=== PATIENT | male | born 1955 | race Caucasian/White ===

== ENCOUNTER 2018-07-14 12:21 | Inpatient (IN) | payer MEDICARE ==
[~2018-07-14] VITALS: Ht 370.8 cm; Wt 103.4 kg
[2018-07-14] MEDS ORDERED: TRAMADOL 50MG TABLET PO ONE (16:15)
[2018-07-14] MEDS ORDERED: ACETAMINOPHEN WITH CODEINE 300/30MG TABLET PO ONE (16:15)
[2018-07-14] MEDS ORDERED: ONDANSETRON 4MG ODT PO ONE (16:15)
[2018-07-14] MEDS ORDERED: SODIUM CHLORIDE 0.9% 1,000 ML IV ONE (17:28)
[2018-07-14] MEDS ORDERED: ONDANSETRON HCL 4MG/2ML INJ IV ONE (18:00)
[2018-07-14] MEDS ORDERED: MORPHINE SULFATE 4 MG/ML CPJ (NOT FOR IM USE) IV ONE (18:00)
[2018-07-14] MEDS ORDERED: ETOMIDATE 2MG/ML 10ML VIAL IV ONE (18:00)
[2018-07-14 18:33] LABS: BASOPHILS % 0.5 % (0.0-2.0); EOSINOPHILS % 0.1 % (0.0-5.0); HEMATOCRIT. 44.5 % (42.0-52.0); HEMOGLOBIN. 14.8 g/dL (14.0-18.0); LYMPHOCYTES % 11.9 % (20.0-50.0); MEAN CORPUSCULAR HEMOGLOBIN 28.6 pg (28.0-32.0); MEAN CORPUSCULAR VOLUME 85.8 fL (80.0-94.0); MEAN PLATELET VOLUME 8.1 fl (7.4-10.4); MONOCYTES % 9.6 % (2.0-8.0); NEUTROPHILS % 77.9 % (40.0-76.0); PLATELET 200 x1000/uL (130-400); RED BLOOD CELL COUNT 5.19 mill/uL (4.7-6.1); RED CELL DISTRIBUTION WIDTH 13.2 % (11.6-14.6)
[2018-07-14 18:35] LABS: CHLORIDE 105 mEq/L (98-107)
[2018-07-14 18:37] LABS: PARTIAL THROMBOPLASTIN TIME 26.5 sec (23.4-31.0); PROTHROMBIN TIME 10.4 sec (9.6-11.0)
[2018-07-14 21:50] VITALS: BP 108/53
[2018-07-14] MEDS ORDERED: CLONIDINE 0.1MG TABLET PO PRN (22:30)
[2018-07-14] MEDS ORDERED: ONDANSETRON HCL 4MG/2ML INJ IV PRN (22:30)
[2018-07-14] MEDS ORDERED: TRAMADOL 50MG TABLET PO PRN (22:30)
[2018-07-14] MEDS ORDERED: ACETAMINOPHEN 325MG TABLET PO PRN (22:30)
[2018-07-14] MEDS ORDERED: MAGNESIUM/ALUMINUM HYDROXIDE/SIMETHICONE 30ML UDC PO PRN (22:30)
[2018-07-14] MEDS ORDERED: LORAZEPAM 2MG/ML CPJ IV PRN (22:30)
[2018-07-14] MEDS ORDERED: DIPHENHYDRAMINE 50MG/ML VIAL IV PRN (22:30)
[2018-07-14 23:00] VITALS: BP 136/74
[2018-07-14] MEDS: ENOXAPARIN 40MG/0.4ML SYR SUBCUT SCH (23:31)
[2018-07-15] VITALS: BP 139/76
[2018-07-15 04:00] VITALS: BP 106/66
[2018-07-15] MEDS: SODIUM CHLORIDE 0.9% INJ 3ML FLUSH IVF SCH ×3 (05:31→21:36)
[2018-07-15] MEDS: PHENYTOIN SODIUM EXTENDED 100MG CAPSULE PO SCH ×2 (05:31→14:14)
[2018-07-15] MEDS: THIORIDAZINE HCL 25MG TABLET PO SCH ×2 (05:36→14:00)
[2018-07-15 08:00] VITALS: BP 121/72
[2018-07-15 12:00] VITALS: BP 119/78
[2018-07-15 16:00] VITALS: BP 137/77
[2018-07-15 20:00] VITALS: BP 123/80
[2018-07-15] MEDS: RISPERIDONE 1MG TABLET PO SCH (21:34)
[2018-07-15] MEDS: ENOXAPARIN 40MG/0.4ML SYR SUBCUT SCH (21:35)
[2018-07-16] VITALS: BP 124/73
[2018-07-16 04:00] VITALS: BP 143/88
[2018-07-16] MEDS: SODIUM CHLORIDE 0.9% INJ 3ML FLUSH IVF SCH ×3 (05:58→23:23)
[2018-07-16 08:00] VITALS: BP 121/76
[2018-07-16] MEDS: RISPERIDONE 1MG TABLET PO SCH ×2 (09:22→20:49)
[2018-07-16 12:00] VITALS: BP 117/73
[2018-07-16 16:00] VITALS: BP 139/79
[2018-07-16 20:00] VITALS: BP 130/84
[2018-07-17] VITALS: BP 131/74
[2018-07-17 04:00] VITALS: BP 128/85
[2018-07-17] MEDS: SODIUM CHLORIDE 0.9% INJ 3ML FLUSH IVF SCH ×3 (05:20→21:11)
[2018-07-17] MEDS: RISPERIDONE 1MG TABLET PO SCH ×2 (08:09→21:11)
[2018-07-17 08:12] VITALS: BP 127/76
[2018-07-17] MEDS ORDERED: BACITRACIN 15GM TUBE TOP ONE (10:59)
[2018-07-17] MEDS ORDERED: VANCOMYCIN HCL 500 MG/VIAL ONE (10:59)
[2018-07-17 11:30] VITALS: BP 134/81
[2018-07-17] MEDS ORDERED: MIDAZOLAM HCL 2 MG/2 ML VIAL ONE (12:30)
[2018-07-17] MEDS ORDERED: FENTANYL CITRATE/PF 50MCG/ML 2ML VIAL ONE (12:30)
[2018-07-17] MEDS ORDERED: PROPOFOL 200MG/20ML VIAL IV ONE (12:30)
[2018-07-17] MEDS ORDERED: ONDANSETRON HCL 4MG/2ML INJ ONE (12:35)
[2018-07-17] MEDS ORDERED: DEXAMETHASONE 4MG/ML 1ML VIAL ONE (12:35)
[2018-07-17] MEDS ORDERED: CEFAZOLIN SODIUM 1000MG/VIAL ONE (13:07)
[2018-07-17] MEDS ORDERED: HYDROMORPHONE HCL/PF 2MG/ML (OR) ONE (13:07)
[2018-07-17] MEDS ORDERED: EPHEDRINE SULFATE 50MG/ML VIAL ONE (13:07)
[2018-07-17] MEDS ORDERED: SODIUM CHLORIDE 0.9% 10ML VIAL ONE (13:07)
[2018-07-17] MEDS ORDERED: MEPERIDINE HCL/PF 25MG/ML CPJ IV PRN (13:15)
[2018-07-17] MEDS ORDERED: LABETALOL 5MG/ML SYR 20 MG/4 ML SYRINGE IV PRN (13:15)
[2018-07-17] MEDS ORDERED: HYDROMORPHONE HCL/PF 2MG/ML CPJ IV PRN (13:15)
[2018-07-17] MEDS ORDERED: ONDANSETRON HCL 4MG/2ML INJ IV PRN (13:15)
[2018-07-17 15:30] VITALS: BP 149/73
[2018-07-17 20:00] VITALS: BP 117/78
[2018-07-17] MEDS: CEFAZOLIN 1000MG PREMIX 50 ML IV SCH (21:11)
[2018-07-18] VITALS: BP 95/63
[2018-07-18 04:00] VITALS: BP 110/74
[2018-07-18] MEDS: SODIUM CHLORIDE 0.9% INJ 3ML FLUSH IVF SCH ×3 (05:21→20:26)
[2018-07-18] MEDS: CEFAZOLIN 1000MG PREMIX 50 ML IV SCH ×2 (05:22→12:44)
[2018-07-18 08:00] VITALS: BP 113/65
[2018-07-18] MEDS: RISPERIDONE 1MG TABLET PO SCH ×2 (08:14→20:25)
[2018-07-18 12:00] VITALS: BP 126/73
[2018-07-18 16:00] VITALS: BP 122/74
[2018-07-18 19:46] VITALS: BP 108/60
[2018-07-19] VITALS: BP 110/70
[2018-07-19 04:00] VITALS: BP 119/65
[2018-07-19] MEDS: SODIUM CHLORIDE 0.9% INJ 3ML FLUSH IVF SCH ×3 (06:00→21:18)
[2018-07-19 06:03] LABS: BASOPHILS % 0.4 % (0.0-2.0); EOSINOPHILS % 2.3 % (0.0-5.0); HEMATOCRIT. 39.2 % (42.0-52.0); HEMOGLOBIN. 13.5 g/dL (14.0-18.0); LYMPHOCYTES % 13.7 % (20.0-50.0); MEAN CORPUSCULAR HEMOGLOBIN 29.3 pg (28.0-32.0); MEAN CORPUSCULAR VOLUME 85.2 fL (80.0-94.0); MEAN PLATELET VOLUME 7.8 fl (7.4-10.4); MONOCYTES % 12.4 % (2.0-8.0); NEUTROPHILS % 71.2 % (40.0-76.0); PLATELET 178 x1000/uL (130-400); RED CELL DISTRIBUTION WIDTH 13.1 % (11.6-14.6)
[2018-07-19 06:38] LABS: CHLORIDE 106 mEq/L (98-107)
[2018-07-19 08:00] VITALS: BP 100/50
[2018-07-19] MEDS: RISPERIDONE 1MG TABLET PO SCH ×2 (09:23→21:17)
[2018-07-19 12:00] VITALS: BP 118/75
[2018-07-19 16:00] VITALS: BP 114/75
[2018-07-19 20:00] VITALS: BP 115/55
[2018-07-20] VITALS: BP 101/61
[2018-07-20 04:00] VITALS: BP 106/68
[2018-07-20] MEDS: SODIUM CHLORIDE 0.9% INJ 3ML FLUSH IVF SCH (06:31)
[2018-07-20 08:00] VITALS: BP 115/73
[2018-07-20] MEDS: RISPERIDONE 1MG TABLET PO SCH (08:12)
[2018-07-20 15:42] VITALS: BP 147/74
[2018-07-20 16:00] VITALS: BP 123/79
[2018-07-20 20:34] VITALS: BP 104/71
== END 2018-07-20 20:26 | DRG 493 ==
LOC: ER 12:21 → EDBEDREQ 18:01 → 8WST 18:20 → EDBEDREQ 18:28 → ENRESERV 20:24 → 8WST 22:00
PROVIDERS: ADMIT Internal Medicine; ATTEND Internal Medicine
PROC: 0QSGXZZ Reposition Right Tibia, External Approach (ICD-10-PCS; 2018-07-14)
PROC: 5A09557 Assistance with Respiratory Ventilation, Greater than 96 Consecutive Hours, Continuous Positive Airway Pressure (ICD-10-PCS; 2018-07-15)
PROC: 0QSJ04Z Reposition Right Fibula with Internal Fixation Device, Open Approach (ICD-10-PCS; principal; 2018-07-17)
PROC: 0SSF04Z Reposition Right Ankle Joint with Internal Fixation Device, Open Approach (ICD-10-PCS; 2018-07-17)
DX: S82.851A Displaced trimalleolar fracture of right lower leg, initial encounter for closed fracture (principal); N17.9 Acute kidney failure, unspecified; D72.829 Elevated white blood cell count, unspecified; G40.909 Epilepsy, unspecified, not intractable, without status epilepticus; F41.9 Anxiety disorder, unspecified; F20.9 Schizophrenia, unspecified; R42 Dizziness and giddiness; R73.9 Hyperglycemia, unspecified; W18.30XA Fall on same level, unspecified, initial encounter; Y93.89 Activity, other specified; Y92.89 Other specified places as the place of occurrence of the external cause; Y99.8 Other external cause status
CPT/HCPCS: 36415; 71045; 73502; 73590; 73600; 73610; 73630; 76000; 80185; 82962; 92523; 93005; 94660; 96374; 96375; 97116; 97162; 97166; 97530; 97535; 99285; C1713; J0690; J1100; J1170; J1650; J2250; J2270; J2405; J2704; J3010; J3370; J3490; J7030; Q0162; Q4051

== ENCOUNTER 2020-09-20 18:19 | Emergency (ER) | payer MEDICARE, MEDICAID ==
[~2020-09-20] VITALS: Ht 172.7 cm; Wt 106.0 kg
[2020-09-20] MEDS ORDERED: LIDOCAINE HCL/PF 1% 10 MG/ML 5ML VIAL IJ ONE (19:00)
[2020-09-20] MEDS ORDERED: TETANUS, DIPHTHERIA, PERTUSSIS VAC/PF 0.5ML (>7YR OLD) IM ONE (19:00)
[2020-09-20] MEDS ORDERED: ACETAMINOPHEN 325MG TABLET PO ONE (19:00)
[2020-09-20] MEDS ORDERED: BACITRACIN ZINC OINT UDPKT TOP ONE (19:00)
[2020-09-20 20:43] VITALS: BP 133/82
== END 2020-09-20 20:53 | disposition home or self-care (01) ==
LOC: ER 18:59
DX: S01.01XA Laceration without foreign body of scalp, initial encounter (principal); W01.198A Fall on same level from slipping, tripping and stumbling with subsequent striking against other object, initial encounter; Y93.89 Activity, other specified; R00.0 Tachycardia, unspecified; I10 Essential (primary) hypertension; G31.89 Other specified degenerative diseases of nervous system; Y92.017 Garden or yard in single-family (private) house as the place of occurrence of the external cause; Z23 Encounter for immunization
CPT/HCPCS: 12013; 70450; 90471; 90715; 99284; J3490

== ENCOUNTER 2020-09-25 13:37 | Emergency (ER) | payer MEDICARE, MEDICAID ==
[~2020-09-25] VITALS: Ht 182.9 cm; Wt 100.0 kg
[2020-09-25 15:12] VITALS: BP 148/95
== END 2020-09-25 15:13 | disposition home or self-care (01) ==
LOC: ER 13:37
DX: Z48.02 Encounter for removal of sutures (principal); Z86.59 Personal history of other mental and behavioral disorders
CPT/HCPCS: 99281